=== PATIENT | female | born 1995 | race Caucasian/White ===

== ENCOUNTER 2022-02-27 09:11 | Emergency (ER) | payer BC ==
[2022-02-27] MEDS ORDERED: Aspirin 81 MG Tab.Chew PO ONE (09:45)
[2022-02-27 10:26] LABS: CORONAVIRUS COVID-19 NAA NEGATIVE (NEGATIVE); INFLUENZA A NAA NEGATIVE (NEGATIVE); INFLUENZA B NAA NEGATIVE (NEGATIVE); RESPIRATORY SYNCYTIAL VIR NAA NEGATIVE (NEGATIVE)
[2022-02-27 10:33] LABS: CARBON DIOXIDE,CO2 25.4 mmol/L (21.0-32.0); POTASSIUM,K 3.9 mmol/L (3.5-5.1)
[2022-02-27] MEDS ORDERED: Ketorolac 30 MG/ML SDV IVPUSH ONE (10:38)
[2022-02-27] MEDS ORDERED: Magnesium Oxide 400 MG Tab PO ONE (10:38)
== END 2022-02-27 12:15 | disposition home or self-care (01) ==
LOC: MW.ED 09:11
DX: R07.9 Chest pain, unspecified (principal); Z88.0 Allergy status to penicillin; Z20.822 Contact with and (suspected) exposure to COVID-19
CPT/HCPCS: 0241U; 36415; 71045; 80053; 83735; 84484; 85025; 85379; 85610; 93005; 96374; 99285; A9270; J1885